=== PATIENT | female | born 1990 | race Asian ===

== ENCOUNTER 2017-07-08 20:34 | Emergency (ER) | payer OTHER ==
[~2017-07-08] VITALS: Ht 160 cm; Wt 43.5 kg
[2017-07-08] MEDS ORDERED: LIDOCAINE HCL 2%/EPI 1:200,000/PF 20 ML VIAL INJ ONE (22:00)
[2017-07-08 23:25] VITALS: BP 128/85
== END 2017-07-09 00:03 | disposition home or self-care (01) ==
LOC: EMS 20:36
DX: S01.81XA Laceration without foreign body of other part of head, initial encounter (principal); Y04.0XXA Assault by unarmed brawl or fight, initial encounter; Y93.89 Activity, other specified; Y92.89 Other specified places as the place of occurrence of the external cause; Y99.8 Other external cause status
CPT/HCPCS: 12015; 70260; 81025; 99284; X6474